=== PATIENT | female | born 1945 | race Two or more races ===

== ENCOUNTER 2025-01-12 09:40 | Day surgery (SDC) | payer OTHER ==
[2025-01-09 11:17] LABS: BASO % 0.5 % (0.1-1.2); EOS # 0.31 (0.04-0.54); EOS % 3.0 % (0.7-7.0); LYMPH # 2.91 (1.18-3.74); LYMPH % 27.9 % (19.3-53.1); MEAN PLATELET VOLUME 10.20 fl (9.4-12.4); MONO # 0.89 (0.24-0.82); MONO % 8.5 % (4.7-12.5); NEUT # 6.24 (1.56-6.13); NEUT % 59.8 % (34.0-71.1); RED CELL DISTRIBUTION WIDTH 19.9 % (11.6-14.4)
[2025-01-09 11:28] VITALS: BP 150/80
[2025-01-09 11:36] LABS: INR 1.05
[2025-01-09 11:52] LABS: ALT/SGPT 16.0 U/L (12-78); AST/SGOT 9.0 U/L (15-37); BILIRUBIN TOTAL 0.45 mg/dL (0.3-1.2); BUN CREA RATIO 30.0 (7.0-25.0); CREATININE SERUM 0.79 mg/dL (0.55-1.02); GFR 70.57; GLOBULINA 3.9 G/DL (2.4-3.5); GLUCOSE FASTING 78.0 mg/dL (65-100); OSMOLALITY SERUM 288.0 MOSM/KG (275-295)
[~2025-01-12] VITALS: Ht 152.4 cm; Wt 73.9 kg
[~2025-01-12 09:40] MED LIST: DILT-XR120 MG PO; GRALISE600 MG; LIPITOR40 M1 PO; PLAVIX75 MG PO; PROTONIX20 MG; TOUJEO MAX300 UNIT/1; TRIJARDY XR 101 EACH PO
== END 2025-01-12 17:45 | disposition home or self-care (01) ==
LOC: CIR.AMB 09:40
PROVIDERS: ATTEND Internal Medicine
DX: R13.19 Other dysphagia (principal); K22.0 Achalasia of cardia; K20.80 Other esophagitis without bleeding; K29.60 Other gastritis without bleeding; K31.7 Polyp of stomach and duodenum; Z91.041 Radiographic dye allergy status; Z88.0 Allergy status to penicillin